=== PATIENT | male | born 1970 | race Caucasian/White ===

== ENCOUNTER 2022-01-24 08:31 | Inpatient (IN) ==
--- NOTE | 2022-01-07 16:07 | PAT Medication Instructions ---
Medication Instructions Date of Service January 07, 2022 Home Medications Viagra 1 tab PO UD PRN morphine 15 mg immediate release tablet 15 mg PO Q6H PRN trazodone 2 tab PO HS PRN STOP taking 24 hours before surgery Viagra 1 tab PO UD PRN Take morning of surgery With a small sip of water, OTHERWISE NOTHING TO EAT OR DRINK AFTER MIDNIGHT: morphine 15 mg immediate release tablet 15 mg PO Q6H PRN(if needed) Take evening before surgery morphine 15 mg immediate release tablet 15 mg PO Q6H PRN(if needed) trazodone 2 tab PO HS PRN(if needed) Other Notes If you have any questions please call us at [phone] or [phone] or [phone] or [phone]
--- NOTE | 2022-01-10 08:33 | Anesthesiology Consultation ---
Date of Service January 10, 2022 Assessment & Plan (1) Encounter for pre-operative examination: COVID screening: Per assessment on 01/10: No known COVID-19 positive contacts or current COVID-19 related symptoms. Travel screen negative. Patient vaccinated. At surgeon discretion if preop Covid testing being done. Chart Review Chart Review: Acceptable Risk for Surgery and Patient seen in Pre Admission Testing Teaching & Discussion Pre-Anesthesia Teaching/Discussion Notes: Instructed NPO after midnight before surgery,except medications with 15 cc of water. Medication instructions provided according to the PAT guidelines. History Surgery Operation Date: 11/29/21 10:10 Proposed Procedures p L2-L5 Decompression and Fusion, Spinal Cord Monitoring - Bethel Viveros DO Operation Date: 01/24/22 07:45 Proposed Procedures p L2-L5 Decompression and Fusion, Spinal Cord Monitoring - Bethel Viveros DO Height/Weight Height: 5 ft 11 in Weight: 96.3 kg Allergies Allergy/AdvReac Type Severity Reaction Status Date / Time Penicillins Allergy Unknown Hives Verified 01/10/22 08:31 Medications Home Medications Medication Instructions Recorded Confirmed Last Taken Viagra 1 tab PO UD PRN Sexual Activity 01/07/22 01/07/22 Unknown morphine 15 mg immediate release 15 mg PO Q6H PRN Pain 01/07/22 01/07/22 Unknown tablet trazodone 2 tab PO HS PRN Sleep 01/07/22 01/07/22 Unknown Past Medical History Medical History History of chronic back pain History of COVID-19 07/2021 (home test), fatigue, muscle aches and pain > resolved Hx of bladder cancer Migraine Rare, stress-related Exercise / Class Metabolic Activity II 4-5 Yardwork/Stairs/Walk up hill Past Surgical History Surgical History History of arthroscopy of both shoulders History of back surgery L3-L4 Hx of adenoidectomy Hx of colonoscopy Hx of vasectomy Past Anesthesia History No Hx of Anesthesia Complications and No Family Hx of Anesthesia Complications History of PONV No Hx of PONV and No Hx of Motion Sickness Social History Smoking Status: Current some day smoker tobacco type: cigarettes Smoking cigarettes per day: 1 pk every 3-4 days Do You Dip or Chew Tobacco: No Hx Alcohol Use: No Hx Substance Use: Yes (medical marijuana) substance use type: marijuana (Occasional) Review of Systems Patient denies chest pain, shortness of breath, dyspnea on exertion, fever, chills, cough, wheezing, palpitations. Physical Exam Vital Signs VITALS BP 105/65 P 57 TEMP 98.7 SP02 98%RA RESP 16 PHYSICAL Full cervical extension range of motion. Full TMJ range of motion. TMD 3 finger breaths Mallampati Score 3 Dentition: + missing incluing upper front, + crowns Lungs: clear throughout to auscultation Cardiac: regular rate and rhythm, no murmurs noted Spine: normal Carotid arteries: negative bruit Extremities: no edema Lab Results Anesthesia Preop Results Results Anesthesia Widget: WBC 5.10 K/ul (4.8-10.8) 01/10/22 Hgb 12.6 g/dl (14.0-18.0) L 01/10/22 Hct 37.2 % (40.1-51.0) L 01/10/22 Plt 161 K/uL (130-400) 01/10/22 Na 140 mmol/L (136-145) 01/10/22 K 4.1 mmol/L (3.5-5.1) 01/10/22 Cl 106 mmol/L (98-107) 01/10/22 CO2 30 mmol/L (21-32) 01/10/22 BUN 12 mg/dl (6-23) 01/10/22 Creat 1.09 mg/dl (0.6-1.4) 01/10/22 Glucose Level 88 mg/dl (70-99(Fasting)) 01/10/22 PT 10.5 Seconds (9.0-12.0) 01/10/22 PTT 29.7 Seconds (21.0-31.0) 01/10/22 INR 1.0 (0.9-1.1) 01/10/22 Urine Color Yellow 01/10/22 Urine Appearance Clear (Clear) 01/10/22 Urine pH 5.5 (4.5-7.5) 01/10/22 Urine Specific [place] 1.012 (1.000-1.030) 01/10/22 Urine Protein Negative (Negative) 01/10/22 Urine Glucose (UA) Negative (Negative) 01/10/22 Urine Ketones Negative (Negative) 01/10/22 Urine Blood Negative (Negative) 01/10/22 Urine Nitrite Negative (Negative) 01/10/22 Urine Bilirubin Negative (Negative) 01/10/22 Urine Urobilinogen Negative (Negative) 01/10/22 Urine Leukocyte Esterase Negative (Negative) 01/10/22 Blood Type O Positive 01/10/22 Antibody Screen NEGATIVE 01/10/22 Testing Electrocardiogram Date: 01/10/22 SB at 53bpm. Chest X-Ray Date: 01/10/22 FINDINGS: PA and lateral chest radiographs are compared to study dated 10/17/2013. The cardiomediastinal silhouette is unremarkable. The lungs and pleural spaces are clear. There is no pneumothorax. The bony thorax appears intact. IMPRESSION: No active disease in the chest. COVID-19 Risk Screen Screening Information COVID-19 Screen Date: 01/10/22 Exposure 21 Days Family/Household +COVID Last 21 Days: No Exposure 10 Days Any COVID Exposure Last 10 Days: No Symptoms Last 10 Days Experienced COVID Sx Last 10 Days: No + COVID 0-90 Days COVID + in Last 0-90 Days: No
[~2022-01-24 08:31] MED LIST: ACETAMINOPHEN 500 MG TAB PO SCH; CLINDAMYCIN/D5W 900 MG/50 ML BAG IV SCH; CeleBREX 200 MG CAP PO SCH; GABAPENTIN 900 MG DOSE PO SCH; LR 15ML/HR IV SCH
--- NOTE | 2022-01-24 09:22 | History & Physical Bridge Note ---
Date of Service January 24, 2022 History & Physical Bridge Note I have examined the patient, reviewed the History & Physical and in the interval since the performance of the History & Physical I have noted the following changes of clinical significance: no changes noted
[2022-01-24] MEDS ORDERED: ATROPINE SULFATE 0.1 MG/ML 10ML SYR IV PRN (09:23)
[2022-01-24] MEDS ORDERED: HYDROmorphone INJ 2 MG/ML SYR/VIAL IV PRN (09:23)
[2022-01-24] MEDS ORDERED: ePHEDrine sulfate 50 MG/ML AMP IV PRN (09:23)
[2022-01-24] MEDS ORDERED: ONDANSETRON INJ 2 MG/ML 2 ML VIAL IV PRN ×2 (09:23→13:25)
--- NOTE | 2022-01-24 09:23 | History & Physical Report ---
Date of Service January 24, 2022 Assessment & Plan (1) Neurogenic claudication due to lumbar spinal stenosis: Plan: L2-L5 decompression and fusion History of Present Illness Chief Complaint: Back and bilateral leg pain Primary Care Provider: NO PCP This is a 51-year-old male who presents with chronic persistent back and leg pain. Failed extensive course of nonoperative care is here for surgical invention. Allergies Allergy/AdvReac Type Severity Reaction Status Date / Time Penicillins Allergy Unknown Hives Verified 01/24/22 08:57 Home Medications Medication Instructions Recorded Confirmed Type Viagra 1 tab PO UD PRN Sexual Activity 01/07/22 01/24/22 History morphine 15 mg immediate release 15 mg PO Q6H PRN Pain 01/07/22 01/24/22 History tablet trazodone 2 tab PO HS PRN Sleep 01/07/22 01/24/22 History Past Med/Surg History Medical History History of chronic back pain History of COVID-19 07/2021 (home test), fatigue, muscle aches and pain > resolved Hx of bladder cancer Migraine Rare, stress-related Surgical History History of arthroscopy of both shoulders History of back surgery L3-L4 Hx of adenoidectomy Hx of colonoscopy Hx of vasectomy Social History Smoking Status: Current some day smoker Cigarettes Per Day: 1 pk every 3-4 days; Second Hand Exposure: Yes (as a child); Do You Dip or Chew Tobacco: No; Tobacco Cessation Education Requested by Patient: No Hx Alcohol Use: No Hx Substance Use: Yes (medical marijuana) Preferred Language: Ukrainian Communication Ability: Effective Commodities Manager Required: No Beliefs That Will Affect Care: None Current Living Situation: Significant Other Other Information That Helps Us Care for You: No Feels Safe at Home: Yes Safety Concerns: Feels Safe At This Time Assistive Devices: None Physical Exam Physical Exam: Patient is alert and oriented Heart regular in rhythm Lungs clear Results & Data Results & Data ([facility]) Vital Signs (Past 12 Hours) Vital Signs Temp Pulse Resp BP Pulse Ox O2 Del Method 01/24/22 09:10 36.7 C 58 L 20 123/80 99 Room Air
[2022-01-24] MEDS ORDERED: LIDOCAINE 2% MPF LOCAL 5 ML VIAL INFIL ONE (09:36)
[2022-01-24] MEDS ORDERED: ROCURONIUM BROMIDE 10 MG/ML 5 ML VIAL IV ONE ×5 (09:36→10:27)
[2022-01-24] MEDS ORDERED: DEXAMETHASONE SOD INJ 4 MG/ML VIAL ONE (09:36)
[2022-01-24] MEDS ORDERED: NEOSTIGMINE METHYLSULFATE 1 MG/ML 10ML VIAL ONE (09:36)
[2022-01-24] MEDS ORDERED: MIDAZOLAM HCL 1 MG/ML 2ML VIAL ONE (09:36)
[2022-01-24] MEDS ORDERED: GLYCOPYRROLATE 0.2 MG/ML VIAL ONE (09:36)
[2022-01-24] MEDS ORDERED: PROPOFOL IV EMULSION 10 MG/ML 20 ML VIAL IV ONE (09:36)
[2022-01-24] MEDS ORDERED: HYDROmorphone INJ 2 MG/ML SYR/VIAL ONE ×2 (09:36→11:02)
[2022-01-24] MEDS ORDERED: ONDANSETRON INJ 2 MG/ML 2 ML VIAL ONE (09:36)
[2022-01-24] MEDS ORDERED: BUPIVACAINE/EPINEPHRINE 0.25% 1:200,000 30 ML VIAL ONE (09:41)
[2022-01-24] MEDS ORDERED: ceFAZolin 330 MG/ML 1 GM VIAL ONE (09:41)
[2022-01-24] MEDS ORDERED: FLOSEAL HEMOSTATIC MATRIX 10ML TOP ONE (10:55)
[2022-01-24] MEDS ORDERED: ALBUMIN HUMAN 5% 12.5 GM/250 ML VIAL IV ONE (11:11)
--- NOTE | 2022-01-24 11:45 | Operative Report ---
Post Operative Report Pre & Post Diagnosis Operation Date: 11/29/21 10:10 <No data on this case meets the specified criteria> Operation Date: 01/24/22 09:55 Pre-Op Diagnosis: Lumbar spinal stenosis with radiculopathy Post-Op Diagnosis: Same I identified the patient and participated in the time-out.: Yes Procedure Operation Date: 11/29/21 10:10 <No data on this case meets the specified criteria> Operation Date: 01/24/22 09:55 Actual Procedures #1 revision decompression with bilateral medial facetectomies and foraminotomies L2-L3, L3-L4 and L4-5. #2 posterior spinal fusion L3-L4 L4-L5. #3 placement posterior instrumentation L3-L4 L4-5. #4 placement locally harvested morselized autograft in the posterior gutters. #5 placement of I factor model V toss in the posterior gutters L3-L5. Surgeon Bethel Viveros, DO Mobile Development Manager Eric Davies Estimated Blood Loss 450 Findings Consistent with Post-Op Diagnosis Specimens None Indications This is a 51-year-old male who presents above-mentioned diagnosis after an extensive course of nonoperative care is here for the above-mentioned procedure. Description of Procedure Patient was met with identified informed consent obtained. Patient was then taken to the operative suite underwent a patient placed in the prone position the [place] table top Carlito frame. All bony prominences well-padded eyes inspected to ensure no external pressure placed upon them. This point the lumbar spine was prepped and draped in a sterile fashion. Sharp dissection with the assistance bradycardia was performed down to and exposing the remaining lamina and transverse processes of L3-L4-L5 bilaterally. From caudal to cephalad fashion complete revision laminectomy of L4 L3 and partial laminectomy of L2 was performed including bilateral medial facetectomies and foraminotomies addressing his spinal stenosis. After this complete pedicle screws were placed at L3 L4-5 bilaterally with assistance of fluoroscopy and proper sized kumar placed and locked in position. The transverse processes of L3 L4-5 were then burred to subcortically bone. I factor combined with V toss and locally harvested morselized autograft was placed in the posterior gutters. 15 round RADHA drain inserted. Incision was then closed with 1 Vicryl in the fascia 2-0 Vicryl subcutaneously and 4 Monocryl for final skin closure. Steri-Strip sterile dressings placed. Patient waken taken to PACU in stable condition. Please note spinal cord monitoring was utilized at the procedure no changes noted. Lastly Eric Davies was present at the entire surgery involved the patient positioning complex portions of the surgery and fascial closure. I attest to the content of the Intraoperative Record and any orders documented therein. Any exceptions are noted below.
--- NOTE | 2022-01-24 12:07 | Fluoroscopy Report ---
FL lumbar spine 2-3V CLINICAL HISTORY: L2-5 DFI COMPARISON STUDY: Lumbar spine MRI September 14, 2014. FLUOROSCOPY TIME: 21 seconds. FLUOROSCOPIC IMAGES: 2 FINDINGS: Fluoroscopy was provided during posterior decompression and bilateral fusion from L3 throug h L5. There are interconnecting rods. Hardware is intact. There are no unexpected radiopaque foreign bodies. IMPRESSION: Fluoroscopy provided during posterior decompression with L3-L5 bilateral pedicle screw f usion. ACT 112: Negative or not required by law. Electronically signed by: Gee Cardenas M.D. 01/24/2022 12:06 PM
[2022-01-24] MEDS: fentaNYL citrate 100 MCG/2 ML VIAL IV PRN ×4 (12:28→12:50)
[2022-01-24] MEDS ORDERED: PROMETHAZINE HCL 12.5 MG in SODIUM CHLORIDE 0.9% 50 ML IV PRN (13:25)
[2022-01-24] MEDS ORDERED: bisacodyL 10 MG SUPP PR PRN (13:25)
[2022-01-24] MEDS ORDERED: FAMOTIDINE 20 MG TAB PO PRN (13:25)
[2022-01-24] MEDS ORDERED: hydrOXYzine HCl 25 MG TAB PO PRN (13:25)
[2022-01-24] MEDS ORDERED: ALUMINUM/MAGNESIUM SUSP 30 ML UDC PO PRN (13:25)
[2022-01-24] MEDS ORDERED: LORazepam 0.5 MG TAB PO PRN (13:25)
[2022-01-24] MEDS ORDERED: traMADol HCL 50 MG TABLET PO PRN (13:25)
[2022-01-24] MEDS ORDERED: MAGNESIUM HYDROXIDE SUSP 30 ML UDC PO PRN (13:25)
[2022-01-24] MEDS ORDERED: LORazepam 0.5 MG in SYRINGE 0 ML IV PRN (13:25)
[2022-01-24] MEDS ORDERED: ACETAMINOPHEN 1,000 MG/100 ML VIAL IV PRN (13:25)
[2022-01-24] MEDS ORDERED: ACETAMINOPHEN 500 MG TAB PO PRN (13:25)
[2022-01-24] MEDS ORDERED: NALOXONE HCL 0.4 MG/1 ML VIAL/CARP IV PRN (13:25)
[2022-01-24] MEDS ORDERED: METOCLOPRAMIDE HCL INJ 5 MG/ML 2 ML VIAL IV PRN (13:25)
[2022-01-24] MEDS ORDERED: SOD PHOSPHATE/SOD BIPHOSPHATE ENEMA 132 ML BTL PR PRN (13:25)
[2022-01-24] MEDS ORDERED: HYDROmorphone INJ 0.5 MG/0.5 ML SYR IV PRN (13:25)
[2022-01-24] MEDS ORDERED: ONDANSETRON 4 MG OD TAB PO PRN (13:25)
[2022-01-24] MEDS ORDERED: diphenhydrAMINE Capsule 25 MG CAP PO PRN (13:25)
--- NOTE | 2022-01-24 13:32 | Anesthesiology Progress Note ---
Date of Service January 24, 2022 Anesthesia Post Procedure Vital Signs Vital Signs: Temp Pulse Pulse Resp BP BP Pulse Ox 01/24/22 13:25 37.0 C 63 18 109/68 100 01/24/22 12:30 74 20 130/90 100 01/24/22 12:20 81 20 123/81 99 01/24/22 13:10 36.8 C 66 12 110/70 100 01/24/22 13:00 63 12 100/68 100 01/24/22 12:50 66 12 106/49 L 100 01/24/22 12:40 65 18 119/74 100 01/24/22 12:10 88 16 140/79 99 01/24/22 12:07 36.4 C L 100 H 18 141/91 H 100 01/24/22 09:10 36.7 C 58 L 20 123/80 99 O2 Del Method O2 Flow Rate 01/24/22 13:25 Room Air 01/24/22 12:30 Nasal Cannula 2 01/24/22 12:20 Nasal Cannula 2 01/24/22 13:10 Nasal Cannula 2 01/24/22 13:00 Nasal Cannula 2 01/24/22 12:50 Nasal Cannula 2 01/24/22 12:40 Nasal Cannula 2 01/24/22 12:10 Nasal Cannula 2 01/24/22 12:07 Nasal Cannula 2 01/24/22 09:10 Room Air Pain Intensity Back: Pain Intensity: 7 Transfer of Care Handoff Completed per policy Notes Mental Status: alert / awake / arousable and participated in evaluation Patient Amnestic to Procedure: Yes Nausea / Vomiting: adequately controlled Pain: adequately controlled Airway Patency, RR, SpO2: stable & adequate BP & HR: stable & adequate Hydration State: stable & adequate Anesthetic Complications: no major complications apparent and Pt Satisfied with anesthetic care
[2022-01-24] MEDS: LACTATED RINGER'S 1,000 ML IV SCH (14:08)
[2022-01-24] MEDS: oxyCODONE HCL IR 5 MG TAB (IMMEDIATE RELEASE) PO PRN ×3 (14:12→22:25)
[2022-01-24] MEDS: CLINDAMYCIN/D5W 600 MG/50 ML BAG IV SCH (17:21)
[2022-01-24] MEDS: HYDROmorphone INJ 1 MG/ML SYRINGE IV PRN (20:28)
[2022-01-24] MEDS: DOCUSATE SODIUM/SENNA 50/8.6MG TAB PO SCH (20:29)
[2022-01-24] MEDS ORDERED: traZODone HCL 50 MG TAB PO PRN (21:00)
[2022-01-25] MEDS: CLINDAMYCIN/D5W 600 MG/50 ML BAG IV SCH (01:03)
[2022-01-25] MEDS: HYDROmorphone INJ 1 MG/ML SYRINGE IV PRN ×6 (01:06→22:29)
[2022-01-25] MEDS: LACTATED RINGER'S 1,000 ML IV SCH (01:37)
[2022-01-25] MEDS: oxyCODONE HCL IR 5 MG TAB (IMMEDIATE RELEASE) PO PRN ×5 (04:34→20:27)
[2022-01-25] MEDS: POLYETHYLENE (MIRALAX) 17 GM PACK PO SCH ×3 (04:47→17:31)
[2022-01-25 06:34] LABS: Basophils # (auto) 0.01 K/uL (0-0.2); Basophils % (auto) 0.1 %; Hematocrit (blood only) 30.4 % (40.1-51.0); Hemoglobin 10.7 g/dl (14.0-18.0); Immature Granulocytes # (auto) 0.07 K/uL (0.00-0.02); Immature Granulocytes % (auto) 0.5 %; Lymphocytes % (auto) 7.5 %; Mean Corpuscular Hemoglobin 29.1 pg (25.0-34.0); Mean Corpuscular Hgb Conc 35.2 g/dL (32.0-36.0); Mean Corpuscular Volume 82.6 fL (80.0-100.0); Mean Platelet Volume 10.8 fL (9.4-12.4); Monocytes # (auto) 0.85 K/uL (0.24-0.82); Monocytes % (auto) 5.8 %; Neutrophils # (auto) 12.69 K/uL (1.4-6.5); Neutrophils % (auto) 86.1 %; Platelet Count 165 K/uL (130-400); RDW Coefficient of Variation 12.5 % (11.5-14.5); RDW Standard Deviation 37.7 fL (36.4-46.3); Red Blood Count 3.68 M/uL (4.63-6.08); White Blood Count 14.72 K/ul (4.8-10.8)
[2022-01-25 06:53] LABS: BUN Creatinine Ratio 15.2 (10-20); Calcium 8.5 mg/dl (8.5-10.1); Creatinine Clr Calc Pharmacy 90.1 ml/min; Est GFR (African American) 87.1 ml/min; Est GFR (Non-African American) 75.1 ml/min; Potassium 4.1 mmol/L (3.5-5.1)
[2022-01-25] MEDS: dexAMETHasone 6 MG in SYRINGE 0 ML IV SCH (08:35)
--- NOTE | 2022-01-25 08:59 | Orthopedic Progress Note ---
Date of Service January 25, 2022 Assessment & Plan (1) Neurogenic claudication due to lumbar spinal stenosis: Plan: This time continue physical therapy monitor his RADHA operatively discharge home next day or so. Admission and Anticipated Discharge Date Admission Date: January 24, 2022 Subjective Patient's back pain is controlled leg symptoms improved Physical Exam Physical Exam: On exam patient is able to sit up on the stand up on his own. Is good strength testing. Appears comfortable. Results & Data ([facility]) Vital Signs (Past 12 Hours) Vital Signs Temp Pulse Resp BP Pulse Ox O2 Del Method 01/25/22 07:17 36.9 C 72 16 105/61 99 Room Air 01/25/22 05:02 37.1 C 65 20 101/63 97 Room Air 01/25/22 01:41 36.8 C 64 18 101/53 L 95 Room Air 01/24/22 22:37 37.1 C 73 17 93/56 L 96 Room Air
[2022-01-25] MEDS: DOCUSATE SODIUM/SENNA 50/8.6MG TAB PO SCH (20:26)
[2022-01-26] MEDS: oxyCODONE HCL IR 5 MG TAB (IMMEDIATE RELEASE) PO PRN ×3 (00:24→08:40)
[2022-01-26] MEDS: POLYETHYLENE (MIRALAX) 17 GM PACK PO SCH ×2 (00:24→06:24)
[2022-01-26] MEDS: HYDROmorphone INJ 1 MG/ML SYRINGE IV PRN ×2 (02:24→06:24)
--- NOTE | 2022-01-26 07:17 | Discharge Summary ---
Date of Service January 26, 2022 Admission HPI Per Admitting Provider This is a 51-year-old male who presents with chronic persistent back and leg pain. Failed extensive course of nonoperative care is here for surgical invention. Discharge Data Procedures Performed Operation Date: 11/29/21 10:10 <No data on this case meets the specified criteria> Operation Date: 01/24/22 09:55 Actual Procedures p L2-L5 Decompression and Fusion, Spinal Cord Monitoring(Not Applicable) - Bethel Viveros DO Hospital Course (1) Neurogenic claudication due to lumbar spinal stenosis: Patient is a 51-year-old male with history physical examination radiographic images consistent with the above-mentioned diagnosis. For this reason is brought to the operating room and undergone a lumbar decompression and fusion. The of the operating room with a RADHA drain Michael in place was transferred to PACU in stable condition. He was transferred to the orthopedic floor was seen by physical therapy postoperatively 1. Throughout his hospital course his calves remained supple nontender his dressing remained clean dry and intact on postop day 2 is deemed safe for home discharge. He was to change his dressing once daily until there is no drainage. He should not lift anything heavier than 5 to [address] not [address] until his postop visit. He has an appointment in 2 weeks to see our office or sooner if he develops any increased pain, fever, chills or drainage from the incision.
[2022-01-26] MEDS: dexAMETHasone 6 MG in SYRINGE 0 ML IV SCH (08:40)
== END 2022-01-26 11:40 | disposition home or self-care (01) | DRG 460 ==
LOC: ASU 08:31 → 3E 11:48